=== PATIENT | female | born 1985 | race Two or more races ===

== ENCOUNTER 2020-11-13 14:00 | Inpatient (IN) | payer OTHER ==
[~2020-11-13] VITALS: Ht 165.1 cm; Wt 68.9 kg
[2020-11-18] MEDS ORDERED: PRENATAL CAPLE1 EAC1 PO (03:10)
== END 2020-11-21 12:57 | disposition home or self-care (01) | DRG 807 ==
LOC: LDR 11-18 01:54 → SURG-SUITE 11-18 06:18 → LDR 11-27 14:00
PROVIDERS: ADMIT Obstetrics & Gynecology; ATTEND Obstetrics & Gynecology
PROC: 10E0XZZ Delivery of Products of Conception, External Approach (ICD-10-PCS; principal; 2020-11-18)
PROC: 10907ZC Drainage of Amniotic Fluid, Therapeutic from Products of Conception, Via Natural or Artificial Opening (ICD-10-PCS; 2020-11-18)
PROC: 4A1HXFZ Monitoring of Products of Conception, Cardiac Rhythm, External Approach (ICD-10-PCS; 2020-11-18)
DX: O99.824 Streptococcus B carrier state complicating childbirth (principal); Z37.0 Single live birth; Z3A.38 38 weeks gestation of pregnancy; Z20.822 Contact with and (suspected) exposure to COVID-19